=== PATIENT | female | born 1990 | race Caucasian/White ===

== ENCOUNTER → 2018-08-26 | Outpatient (CLI) | payer SELFPAY | END | disposition home or self-care (01) | LOC: LABWHC1 11:50 | PROVIDERS: ATTEND Obstetrics & Gynecology | DX: Z34.90 Encounter for supervision of normal pregnancy, unspecified, unspecified trimester (principal) | CPT/HCPCS: 36415; 84702 ==

== ENCOUNTER → 2018-09-03 | Outpatient (CLI) | payer SELFPAY | END | disposition home or self-care (01) | LOC: LABWHC1 15:48 | PROVIDERS: ATTEND Obstetrics & Gynecology | DX: O03.9 Complete or unspecified spontaneous abortion without complication (principal); R53.83 Other fatigue | CPT/HCPCS: 36415; 84702 ==

== ENCOUNTER 2022-06-21 05:52 | Inpatient (IN) | payer OTHER ==
[2022-06-21] MEDS ORDERED: TERBUTALINE 1 MG/ML VIAL SQ PRN (06:12)
[2022-06-21] MEDS ORDERED: LIDOCAINE 0.5% (PF) 5 MG/ML (50 ML SDV) SQ PRN (06:12)
[2022-06-21] MEDS: LACTATED RINGERS 1,000 ML IV SCH ×4 (06:15→22:43)
[2022-06-21] MEDS: OXYTOCIN 30 UNITS/500 ML NS 30 UNIT in SALINE 1 500ML.BAG IV SCH (06:42)
[2022-06-21 07:34] LABS: Glucose,Whole Blood 99 mg/dL (70-110)
[2022-06-21 08:37] LABS: Basophils % (A) 0 %; Eosinophils # (A) 0.2 k/uL (0-0.7); Eosinophils % (A) 3 %; HCT 34.3 % (34.0-46.0); HGB 11.7 gm/dL (11.4-16.0); Lymphocytes # (A) 1.6 k/uL (1.0-4.8); Lymphocytes % (A) 29 %; MCH 31.2 pg (25.0-35.0); MCHC 34.1 g/dL (31.0-37.0); MCV 91.4 fL (80.0-100.0); Monocytes # (A) 0.3 k/uL (0-1.0); Monocytes % (A) 6 %; Neutrophils # (A) 3.1 k/uL (1.3-7.7); Neutrophils % (A) 59 %; Platelet Count 110 k/uL (150-450); RBC 3.75 m/uL (3.80-5.40); RDW 13.9 % (11.5-15.5); WBC 5.3 k/uL (3.8-10.6)
--- NOTE | 2022-06-21 09:06 | P.HPOB ---
History of Present Illness H&P Date: 06/21/22 Chief Complaint: Medical Induction of Labor Ms. Rocha is a 32 year old at 38 weeks, 0 days with EDC of 07/05/2022 who presents for medical induction of labor for poorly controlled GDMA2 on insulin and suspected LGA fetus. Obstetric history: 1 early SAB not requiring D&C Laboratory data: blood type A positive, GBS negative, Rubella immune, early 1 hr GTT 237, Hgb A1c 6.2%, HBsAg negative, HIV non-reactive, VDRL non-reactive. She tested positive for chlamydia during the , was treated, and test of cure was negative. Past Medical History Past Medical History: Asthma Additional Past Medical History / Comment(s): GDMA2 on insulin History of Any Multi-Drug Resistant Organisms: None Reported Additional Past Surgical History / Comment(s): ACL REPAIR Past Anesthesia/Blood Transfusion Reactions: No Reported Reaction Past Psychological History: No Psychological Hx Reported Smoking Status: Former smoker Past Alcohol Use History: None Reported Past Drug Use History: None Reported - Past Family History Father Family Medical History: Diabetes Mellitus Mother Family Medical History: Thyroid Disorder Medications and Allergies Home Medications Medication Instructions Recorded Confirmed Type Albuterol Inhaler [Ventolin Hfa 90 mg PO DAILY 06/21/22 06/21/22 History Inhaler] Insulin Aspart [NovoLOG Flexpen] 10 unit SQ TID 06/21/22 06/21/22 History Vit No.179/Iron/Folic 1 tablet PO DAILY 06/21/22 06/21/22 History [ Tablet] Allergies Allergy/AdvReac Type Severity Reaction Status Date / Time No Known Allergies Allergy Verified 06/21/22 06:08 Exam Vital Signs Temp Pulse Resp BP Pulse Ox 06/21/22 06:03 97.6 F 93 16 140/81 98 Intake and Output 06/20/22 06/21/22 06/21/22 22:59 06:59 14:59 Other: # Voids 1 Weight 113.398 kg Pleasant, obese in no apparent distress. - OBG Physical Exam Cervix: Focused exam is performed. Cervix is fingertip, 20% effaced, and -3 station. Cooks catheter is placed without difficulty at this time with 60 cc in each balloon. Results Result Diagrams: 06/21/22 06:17 06/21/22 07:13 Abnormal Lab Results - Last 24 Hours (Table) 06/21/22 06/21/22 Range/Units 06:17 07:13 RBC 3.75 L (3.80-5.40) m/uL Plt Count 110 L (150-450) k/uL Glucose 102 H (74-99) mg/dL Assessment and Plan Assessment: 32 y/o at 38 weeks, 0 days with EDC of 07/05/2022 who presents for medical induction of labor for poorly controlled GDMA2 on insulin and suspected LGA infant. Plan: Cooks catheter was inserted and will be left in place for 12 hours with low-dose oxytocin, max of 6. Will remove cooks catheter around 1999 this evening. At that time, will increase oxytocin per protocol and will attempt AROM if this can safely be performed. Continuous EFM. NPO, mIVF. IV stadol prn for pain with cooks catheter. Acuchecks q4h in latent labor and q2h in active labor. Time with Patient: Greater than 30 (35 minutes)
[2022-06-21] MEDS: BUTORPHANOL 1 MG/ML 1 ML VIAL IV PRN ×2 (09:53→13:55)
[2022-06-21 11:15] LABS: Glucose,Whole Blood 87 mg/dL (70-110)
[2022-06-21 13:21] LABS: Appearance,Urine Clear (Clear); Bilirubin,Urine Negative (Negative); Blood,Urine Small (Negative); Color,Urine Colorless; Glucose,Urine (UA) Negative (Negative); Ketones,Urine 1+ (Negative); Leukocyte Esterase,Urine Negative (Negative); Nitrite,Urine Negative (Negative); PH, Urine 5.5 (5.0-8.0); Protein,Urine Negative (Negative); RBC,Urine <1 /hpf (0-5); Specific Gravity,Urine 1.004 (1.001-1.035); Squamous Epithelial Cell,Urine 1 /hpf (0-4); Urobilinogen,Urine <2.0 mg/dL (<2.0); WBC,Urine 1 /hpf (0-5)
[2022-06-21 13:21] LABS: ALT 14 U/L (4-34); AST 17 U/L (14-36); African American GFR (CKD) >90 (>60 ml/min/1.73 sqM); Blood Urea Nitrogen 9 mg/dL (7-17); LDH 365 U/L (313-618); Non-African American GFR(CKD) >90 (>60 ml/min/1.73 sqM); Uric Acid 6.7 mg/dL (3.7-7.4)
[2022-06-21 13:21] LABS: Protein/Creatinine Ratio,Urine 0.524
[2022-06-21 15:05] LABS: Glucose,Whole Blood 85 mg/dL (70-110)
[2022-06-21 19:07] LABS: Glucose,Whole Blood 77 mg/dL (70-110)
[2022-06-21] MEDS ORDERED: fentaNYL (PF) 50 MCG/ML 5 ML AMP ONE ×2 (22:13→22:30)
[2022-06-21] MEDS ORDERED: SODIUM CHLORIDE 0.9% 100 ML BAG ONE (22:13)
[2022-06-21] MEDS ORDERED: ROPIVACAINE 5 MG/ML 20 ML AMPULE ONE (22:13)
[2022-06-21] MEDS ORDERED: SODIUM CHLORIDE 0.9% 100 ML BAG IV ONE (22:30)
[2022-06-21 23:27] LABS: Glucose,Whole Blood 93 mg/dL (70-110)
[2022-06-22 01:04] LABS: Glucose,Whole Blood 83 mg/dL (70-110)
[2022-06-22 03:10] LABS: Glucose,Whole Blood 78 mg/dL (70-110)
[2022-06-22 05:06] LABS: Glucose,Whole Blood 75 mg/dL (70-110)
[2022-06-22] MEDS ORDERED: MAGNESIUM SULFATE GM 6 GM in SODIUM CHLORIDE 0.9% 100 ML IVPB ONE (06:52)
[2022-06-22 07:02] LABS: Glucose,Whole Blood 73 mg/dL (70-110)
[2022-06-22] MEDS: LACTATED RINGERS 1,000 ML IV SCH ×2 (07:37→21:20)
[2022-06-22] MEDS: MAGNESIUM SULFATE-WATER PMX 20 GM in WATER FOR INJECTION 1 500ML.BAG IV SCH ×2 (08:02→17:42)
[2022-06-22] MEDS ORDERED: hydrALAZINE HCL 20 MG/ML 1 ML VIAL IVP STA ×3 (08:35→12:41)
[2022-06-22 10:57] LABS: Glucose,Whole Blood 105 mg/dL (70-110)
[2022-06-22] MEDS ORDERED: NIFEdipine 10 MG CAP PO SCH (11:15)
[2022-06-22] MEDS ORDERED: NIFEdipine XL 30 MG TAB.ER.24 PO SCH (11:15)
[2022-06-22] MEDS: OXYTOCIN 30 UNITS/500 ML NS 30 UNIT in SALINE 1 500ML.BAG IV SCH (13:18)
--- NOTE | 2022-06-22 13:47 | P.PROBDLV ---
Vaginal Delivery Note - . Vaginal Delivery Note: DATE OF SERVICE: 06/22/2022 PROCEDURE: Spontaneous Vaginal Delivery ATTENDING: Dr. Nita Alarcon MD ESTIMATED BLOOD LOSS: 300 mL FINDINGS: VMI, Apgars 9/9, weight 7#9oz PROCEDURE: Patient was a 32 y/o at 38 weeks, 1 day being medically induced for poorly controlled GDMA2. Induction was started with oxytocin and a cooks catheter followed by artifical rupture of membranes at 2055 with clear fluid noted. The patient was noted to have mild-range and severe-range blood pressures. Preeclampsia labs were completed and significant for a urine protein to creatinine ratio of 0.5. The patient had persistently severe-range blood pressures. A diagnosis of preeclampsia with severe features was made. Magensium sulfate was started for neuroproteciton and the patient required 30mg of IV hydralazine to control severe range blood pressures. She was then started on Procardia XL 30 mg daily. The patient eventually requested epidural anesthesia, which was obtained. The patient progressed to complete at 1238 and pushed the head quite effectively. Head delivered without difficulty followed by shoulders and body over intact perineum at 1311. was placed on maternal abdomen and bulb suctioned. Cord was clamped and cut after a 30 second delay. Placenta delivered whole with gentle cord traction. Oxytocin was started to facilitate uterine tone. Uterine fundus firm and bleeding minimal upon fundal massage. Perineal inspection revealed a very small second degree laceration that was repaired with 3-0 Polysorb in the usual fashoin. Patient stable . She will continue to be on a maintenance rate of Magensium Sulfate until 24 hours .
[2022-06-22] MEDS ORDERED: diphenhydrAMINE 50 MG CAP PO PRN (13:49)
[2022-06-22] MEDS ORDERED: HYDROCORTISONE 2.5% RECTAL CREAM 30 GM TUBE RECTAL PRN (13:49)
[2022-06-22] MEDS ORDERED: SIMETHICONE 80 MG CHEWABLE PO PRN (13:49)
[2022-06-22] MEDS ORDERED: LANOLIN CREAM 5 GM TUBE TOPICAL PRN (13:49)
[2022-06-22] MEDS ORDERED: diphenhydrAMINE 25 MG CAP PO PRN (13:49)
[2022-06-22] MEDS ORDERED: ZOLPIDEM 5 MG TAB PO PRN (13:49)
[2022-06-22] MEDS ORDERED: BENZOCAINE/MENTHOL SPRAY 1 GM/SPRAY AEROSOL TOPICAL PRN (13:49)
[2022-06-22] MEDS ORDERED: diphenhydrAMINE 50 MG/ML 1 ML VIAL IVP PRN ×2 (13:49)
[2022-06-22] MEDS ORDERED: HYDROcodone/APAP 5-325MG 1 EACH TAB PO PRN (13:50)
[2022-06-22] MEDS ORDERED: OXYTOCIN 30 UNITS/500 ML NS 30 UNIT in SALINE 1 500ML.BAG IV SCH (14:00)
[2022-06-22] MEDS: IBUPROFEN 600 MG TAB PO PRN ×2 (14:01→20:50)
[2022-06-22 14:05] LABS: Glucose,Whole Blood 160 mg/dL (70-110)
[2022-06-22] MEDS ORDERED: NIFEdipine 10 MG CAP PO ONE (14:58)
[2022-06-22 15:58] LABS: Glucose,Whole Blood 234 mg/dL (70-110)
[2022-06-22] MEDS: INSULIN ASPART (NovoLOG) 100 UNIT/ML VIAL SQ SCH ×3 (16:55→20:54)
[2022-06-22 18:50] LABS: Glucose,Whole Blood 271 mg/dL (70-110)
[2022-06-22 20:40] LABS: Glucose,Whole Blood 216 mg/dL (70-110)
[2022-06-22] MEDS: SENNOSIDES-DOCUSATE SODIUM 1 EACH TAB PO SCH (20:52)
[2022-06-23] MEDS: MAGNESIUM SULFATE-WATER PMX 20 GM in WATER FOR INJECTION 1 500ML.BAG IV SCH ×2 (01:49→13:31)
[2022-06-23] MEDS: ACETAMINOPHEN TAB 325 MG TAB PO PRN ×3 (03:22→20:42)
[2022-06-23] MEDS: LACTATED RINGERS 1,000 ML IV SCH ×2 (06:38→13:32)
[2022-06-23 07:30] LABS: Basophils % (A) 0 %; Eosinophils % (A) 0 %; HCT 28.5 % (34.0-46.0); Lymphocytes # (A) 1.3 k/uL (1.0-4.8); Lymphocytes % (A) 10 %; MCHC 34.9 g/dL (31.0-37.0); MCV 91.7 fL (80.0-100.0); Mean Platelet Volume 14.8; Monocytes # (A) 0.6 k/uL (0-1.0); Monocytes % (A) 5 %; Neutrophils # (A) 10.4 k/uL (1.3-7.7); Neutrophils % (A) 82 %; Platelet Count 104 k/uL (150-450); RBC 3.11 m/uL (3.80-5.40); RDW 14.2 % (11.5-15.5); WBC 12.7 k/uL (3.8-10.6)
[2022-06-23 07:38] LABS: Glucose,Whole Blood 118 mg/dL (70-110)
[2022-06-23] MEDS: SENNOSIDES-DOCUSATE SODIUM 1 EACH TAB PO SCH ×2 (08:08→20:42)
[2022-06-23] MEDS: IBUPROFEN 600 MG TAB PO PRN ×2 (08:08→15:50)
--- NOTE | 2022-06-23 10:57 | P.PNOBGVD ---
Subjective - Subjective Principal diagnosis: Normal Vaginal Delivery Interval history: The patient is doing well this morning and had no acute events overnight. She has no complaints this morning. She reports minimal lochia, passing flatus, voiding without difficulty, ambulating, and eating/drinking without nausea or vomiting. She is formula-feeding her . She denies chest pain, shortness of breathing, fevers, or chills overnight. She denies pain or swelling in the legs. She has a mild headache this morning that improved with medication. She denies changes in her vision, RUQ pain. Patient reports: Reports appetite normal, Reports voiding normally, Reports pain well controlled, Reports ambulating normally : doing well, other (s/p circumcision), bottle feeding Objective - Latest Vital Signs Latest vital signs: Vital Signs Temp Pulse Resp BP Pulse Ox 06/23/22 10:13 97.5 F L 80 18 137/86 99 06/23/22 08:00 97.6 F 77 18 138/81 97 06/23/22 04:00 97.7 F 79 16 127/61 97 06/23/22 00:00 97.7 F 86 16 114/55 96 06/22/22 20:00 98.3 F 99 17 122/63 96 06/22/22 16:00 18 06/22/22 15:35 98.8 F 97 18 148/63 98 06/22/22 15:05 98.7 F 105 H 18 155/69 06/22/22 14:35 110 H 18 154/64 06/22/22 14:20 98.9 F 108 H 18 152/67 96 06/22/22 14:05 101 H 18 145/60 96 06/22/22 13:50 98.9 F 112 H 18 163/72 96 06/22/22 13:35 98.9 F 111 H 18 148/79 97 06/22/22 13:15 111 H 22 188/98 06/22/22 12:15 104 H 18 162/70 06/22/22 10:57 98.5 F 98 18 170/84 Intake and Output 06/22/22 06/23/22 06/23/22 22:59 06:59 14:59 Intake Total 483.333 405.833 Output Total 627 Balance -143.667 405.833 Intake: Intake, IV Titration 483.333 405.833 Amount Magnesium Sulfate-Water 483.333 405.833 Pmx 20 gm In Water For Injection 1 500ml.bag @ 2 GM/HR 50 mls/hr IV .Q10H [facility] Rx#:[id number] Output: Urine 400 Uretheral ([place]eda) 400 Estimated Blood Loss 150 Output, Quantitative 77 Blood Loss Other: Voiding Method Toilet # Voids 2 2 1 - Exam Extremities: Present: normal, edema (+1 pitting edema in feet bilaterally) Abdomen: Present: normal appearance, soft Uterus: Present: normal, firm - Labs Labs: Abnormal Lab Results - Last 24 Hours (Table) 06/22/22 06/22/22 06/22/22 Range/Units 14:04 15:56 18:48 WBC (3.8-10.6) k/uL RBC (3.80-5.40) m/uL Hgb (11.4-16.0) gm/dL Hct (34.0-46.0) % Plt Count (150-450) k/uL Neutrophils # (1.3-7.7) k/uL POC Glucose (mg/dL) 160 H 234 H 271 H (70-110) mg/dL 06/22/22 06/23/22 06/23/22 Range/Units 20:38 07:07 07:37 WBC 12.7 H (3.8-10.6) k/uL RBC 3.11 L (3.80-5.40) m/uL Hgb 10.0 L D (11.4-16.0) gm/dL Hct 28.5 L (34.0-46.0) % Plt Count 104 L (150-450) k/uL Neutrophils # 10.4 H (1.3-7.7) k/uL POC Glucose (mg/dL) 216 H 118 H (70-110) mg/dL Assessment and Plan Assessment: 32 y/o now PPD#1 s/p normal vaginal delivery at 38 weeks, 1 day after medical induction of labor for poorly controlled GDMA2. New diagnosis of preeclampsia with severe features while in labor. Plan: 1. GDMA2. BS 160-200s yesterday, insulin sliding scale added. Today fasting was 118, which is improving. Continue ISS as needed. Will have the patient follow up with endocrinology outpatient ~6 weeks . 2. Preeclampsia with severe features. s/p Mag Sulfate in labor and . PIHL within normal limits except P:C 0.5. BPs normotensive to mild-range overnight. Patient now on Procardia XL 60mg qDay. Continue to watch BPs. Patient asymptomatic and doing well this morning. 3. . Patient meeting all milestones appropriately. 4. Male . Circumcision completed today. Doing well at the bedside. Dispo: Anticipate discharge home tomorrow morning if blood pressures stable on Procardia.
[2022-06-23 11:26] LABS: Glucose,Whole Blood 163 mg/dL (70-110)
[2022-06-23] MEDS: INSULIN ASPART (NovoLOG) 100 UNIT/ML VIAL SQ SCH ×3 (12:17→21:02)
[2022-06-23 16:52] LABS: Glucose,Whole Blood 103 mg/dL (70-110)
[2022-06-23 20:36] LABS: Glucose,Whole Blood 106 mg/dL (70-110)
[2022-06-24] MEDS: IBUPROFEN 600 MG TAB PO PRN (05:25)
[2022-06-24] MEDS ORDERED: NIFEdipine XL 30 MG TAB.ER.24 PO SCH (07:00)
[2022-06-24 07:56] LABS: Glucose,Whole Blood 93 mg/dL (70-110)
[2022-06-24] MEDS: INSULIN ASPART (NovoLOG) 100 UNIT/ML VIAL SQ SCH ×2 (08:07→16:24)
[2022-06-24] MEDS: SENNOSIDES-DOCUSATE SODIUM 1 EACH TAB PO SCH (08:07)
[2022-06-24] MEDS ORDERED: NIFEdipine XL 30 MG TAB.ER.24 PO STA (08:27)
--- NOTE | 2022-06-24 08:32 | P.PNOBGVD ---
Subjective - Subjective Principal diagnosis: Normal vaginal delivery Interval history: The patient is doing well this morning and had no acute events overnight. She has no complaints this morning. She reports minimal lochia, passing flatus, voiding without difficulty, ambulating, and eating/drinking without nausea or vomiting. She is formula feeding. has been under bili light. She denies chest pain, shortness of breathing, fevers, or chills overnight. She denies pain or swelling in the legs. Patient reports: Reports appetite normal, Reports voiding normally, Reports pain well controlled, Reports ambulating normally [employer]: doing well, other (getting phototherapy, s/p cirucmcision) Objective - Latest Vital Signs Latest vital signs: Vital Signs Temp Pulse Resp BP Pulse Ox 06/23/22 22:15 98.4 F 77 18 132/69 06/23/22 20:00 98.2 F 66 18 130/66 06/23/22 15:55 98.2 F 80 18 116/74 98 06/23/22 12:00 97.9 F 80 18 126/78 99 06/23/22 10:13 97.5 F L 80 18 137/86 99 Intake and Output 06/23/22 06/24/22 06/24/22 22:59 06:59 14:59 Other: # Voids 2 1 - Exam Extremities: Present: normal Abdomen: Present: normal appearance, soft Uterus: Present: normal, firm - Labs Labs: Abnormal Lab Results - Last 24 Hours (Table) 06/23/22 Range/Units 11:25 POC Glucose (mg/dL) 163 H (70-110) mg/dL Assessment and Plan Assessment: 32 y/o now PPD#2 s/p normal vaginal delivery at 38 weeks, 1 day after medical induction of labor for poorly controlled GDMA2. New diagnosis of pree clampsia with severe features while in labor. Plan: 1. GDMA2. BS have been 90s-100s fasting and postprandial. Discussed with patient that she does not need to take insulin at home. She will follow up with endocrinology at 6 weeks to rule out pregestational diabetes. 2. Preeclampsia with severe features. s/p Mag Sulfate in labor and . PIHL within normal limits except P:C 0.5. BPs normotensive to mild-range overnight, just had a severe range BP this morning 160s systolic but patient states she was stressed about the baby. Patient now on Procardia XL 60mg qDay. Continue to watch BPs. Patient asymptomatic and doing well this morning. 3. . Patient meeting all milestones appropriately. 4. Male . s/p circumcision. getting phototherapy. Dispo: Anticipate discharge home this afternoon if BPs <150s/90s. Will go home on 60 of Procardia XL daily and will f/u in 1 week for BP check.
[2022-06-24 08:35] VITALS: RESP 14; TEMP 97.9
[2022-06-24 12:23] LABS: Glucose,Whole Blood 92 mg/dL (70-110)
[2022-06-24 14:17] VITALS: BP 137/85; PULSE 80
--- NOTE | 2022-06-24 14:33 | P.DS ---
Providers Date of admission: 06/21/22 05:52 Expected date of discharge: 06/24/22 Attending physician: Nita Alarcon MD Primary care physician: Stated None Hospital Course: 32 y/o PPD#2 s/p vaginal delivery after medical induction for GDMA2 poorly controlled. During induciton she was diagnosed with preeclampsia with severe features. She received magnesium sulfate during labor and . Procardia XL 60 mg daily was prescribed to control blood pressures . Otherwise, she met all milestones appropriately. Blood sugars were initially high just following delivery but have been within norm al limits for the 30 hours prior to discharge. Patient instructed that she does not need to continue insulin at home but will follow up with endocrinology around 6 weeks to rule out pregestational diabetes. Assessment: 32 y/o PPD#2 s/p mIOL for GDMA with normal vaginal delivery Patient Condition at Discharge: Good Plan - Discharge Summary Discharge Rx Participant: No New Discharge Prescriptions: New NIFEdipine XL [Procardia XL] 60 mg PO DAILY #30 tab Ibuprofen [Motrin] 600 mg PO Q6HR PRN #30 tab PRN Reason: Mild Pain (Scale 1 To 3) Acetaminophen Tab [Tylenol] 650 mg PO Q4HR PRN #30 tab PRN Reason: Mild Pain (Scale 1 To 3) Continue Vit No.179/Iron/Folic [ Tablet] 1 tablet PO DAILY Albuterol Inhaler [Ventolin Hfa Inhaler] 90 mg PO DAILY Discontinued Insulin Aspart [NovoLOG Flexpen] 10 unit SQ TID Discharge Medication List Albuterol Inhaler [Ventolin Hfa Inhaler] 90 mg PO DAILY 06/21/22 [History] Vit No.179/Iron/Folic [ Tablet] 1 tablet PO DAILY 06/21/22 [History] Acetaminophen Tab [Tylenol] 650 mg PO Q4HR PRN #30 tab 06/24/22 [Rx] Ibuprofen [Motrin] 600 mg PO Q6HR PRN #30 tab 06/24/22 [Rx] NIFEdipine XL [Procardia XL] 60 mg PO DAILY #30 tab 06/24/22 [Rx] Follow up Appointment(s)/Referral(s): Nita Alarcon MD [STAFF PHYSICIAN] - 1 Week Patient Instructions/Handouts: Gestational Diabetes (DC), Depression (DC), Jaundice in Newborns (DC), Bleeding (DC), Preeclampsia and Eclampsia After Delivery (GEN), Vaginal Delivery (DC), Your Qulin's Appearance (DC), Breast Care for the Non- Mother (DC) Activity/Diet/Wound Care/Special Instructions: Activity as tolerated. Pelvic rest for 6 weeks. Discharge Disposition: HOME SELF-CARE
== END 2022-06-24 16:00 | disposition home or self-care (01) | DRG 807 ==
LOC: 4FBP 05:52
PROVIDERS: ADMIT Obstetrics & Gynecology; ATTEND Obstetrics & Gynecology
PROC: 10907ZC Drainage of Amniotic Fluid, Therapeutic from Products of Conception, Via Natural or Artificial Opening (ICD-10-PCS; principal; 2022-06-21)
PROC: 0U7C7ZZ Dilation of Cervix, Via Natural or Artificial Opening (ICD-10-PCS; principal; 2022-06-21)
PROC: 3E033VJ Introduction of Other Hormone into Peripheral Vein, Percutaneous Approach (ICD-10-PCS; principal; 2022-06-21)
PROC: 0KQM0ZZ Repair Perineum Muscle, Open Approach (ICD-10-PCS; 2022-06-22)
PROC: 10E0XZZ Delivery of Products of Conception, External Approach (ICD-10-PCS; 2022-06-22)
DX: O24.424 Gestational diabetes mellitus in childbirth, insulin controlled (principal); O14.14 Severe pre-eclampsia complicating childbirth; O70.1 Second degree perineal laceration during delivery; O99.52 Diseases of the respiratory system complicating childbirth; J45.909 Unspecified asthma, uncomplicated; O36.63X0 Maternal care for excessive fetal growth, third trimester, not applicable or unspecified; Z87.891 Personal history of nicotine dependence; Z28.310 Unvaccinated for COVID-19; Z86.19 Personal history of other infectious and parasitic diseases; Z79.51 Long term (current) use of inhaled steroids; Z3A.38 38 weeks gestation of pregnancy; Z37.0 Single live birth
CPT/HCPCS: 81001; 82565; 82570; 82947; 83615; 84156; 84450; 84460; 84520; 84550; 85025; 86850; 86900; 86901